=== PATIENT | female | born 1945 | race Caucasian/White ===

== ENCOUNTER 2018-02-11 11:07 | Emergency (ER) | payer OTHER ==
[~2018-02-11] VITALS: Ht 152.4 cm; Wt 86.2 kg
[2018-02-11] MEDS ORDERED: FORTAMET500 MG PO (11:37)
[2018-02-11] MEDS ORDERED: TENORMIN50 M1 PO (11:37)
[2018-02-11] MEDS ORDERED: COZAAR100 MG PO (11:37)
== END 2018-02-11 21:28 | disposition home or self-care (01) ==
LOC: ER 11:07
DX: R10.11 Right upper quadrant pain (principal); R10.31 Right lower quadrant pain